=== PATIENT | female | born 1965 | race American Indian/Alaskan Native ===

== ENCOUNTER 2017-12-26 23:33 | Emergency (ER) | payer MEDICARE ==
[2017-12-27] MEDS ORDERED: NACL 0.9% 1000 ML 1,000 ML IV ONE (00:09)
--- NOTE | 2017-12-27 00:09 | Emergency Department Report ---
- General Stated complaint: WEAKNESS Time Seen by Provider: 12/27/17 00:01 Source: patient - History of Present Illness Initial comments: Patient is a 52-year-old female who is complaining of weakness. Patient states that for the last several days been out of her insulin needles and cannot give herself her NovoLog which is on sliding scale. Patient has been taking her metformin. Patient states that today she became very weak and near syncopal at times. Patient has polydipsia polyuria. Patient called 911 checked her sugar was over 300. Patient says she is very sluggish. Patient denies any nausea vomiting abdominal pain at this time. -: Gradual, days(s) (1) - Related Data Home Medications Medication Instructions Recorded Confirmed Last Taken Amitriptyline [Elavil] 25 mg PO QHS 12/27/17 12/27/17 Unknown Amlodipine Besylate [Norvasc] 10 mg PO QDAY 12/27/17 12/27/17 Unknown AtorvaSTATin [Lipitor] 40 mg PO QHS 12/27/17 12/27/17 Unknown Bupropion HCl [Bupropion HCl Sr] 150 mg PO QAM 12/27/17 12/27/17 Unknown HYDROcodone/APAP 7.5-325 [[place] 1 each PO BID 12/27/17 12/27/17 Unknown 7.5/325] Losartan [Cozaar] 25 mg PO QDAY 12/27/17 12/27/17 Unknown Metformin HCl 850 mg PO BID 12/27/17 12/27/17 Unknown Prazosin [Minipress] 2 mg PO QHS 12/27/17 12/27/17 Unknown Quetiapine Fumarate [QUEtiapine 300 mg PO QHS 12/27/17 12/27/17 Unknown Fumarate] Venlafaxine HCl [Venlafaxine HCl 75 mg PO QAM 12/27/17 12/27/17 Unknown ER] Previous Rx's Medication Instructions Recorded Last Taken Type Blood Sugar Diagnostic [Test 1 each MC TID #90 strip 12/27/17 Unknown Rx Strips] Ciprofloxacin HCl [Cipro] 500 mg PO BID #14 tablet 12/27/17 Unknown Rx Syringe-Needle,Insulin,0.5 ml 1 each MC PRN #90 disp.syrin 12/27/17 Unknown Rx [Insulin Syringe/Needle 0.5 ML] Allergies Allergy/AdvReac Type Severity Reaction Status Date / Time No Known Allergies Allergy Unverified 12/27/17 00:20 ED Review of Systems ROS: Stated complaint: WEAKNESS Other details as noted in HPI Comment: All other systems reviewed and negative ED Past Medical Hx - Medications Home Medications: Home Medications Medication Instructions Recorded Confirmed Last Taken Type Amitriptyline [Elavil] 25 mg PO QHS 12/27/17 12/27/17 Unknown History Amlodipine Besylate [Norvasc] 10 mg PO QDAY 12/27/17 12/27/17 Unknown History AtorvaSTATin [Lipitor] 40 mg PO QHS 12/27/17 12/27/17 Unknown History Blood Sugar Diagnostic [Test 1 each MC TID #90 strip 12/27/17 Unknown Rx Strips] Bupropion HCl [Bupropion HCl Sr] 150 mg PO QAM 12/27/17 12/27/17 Unknown History Ciprofloxacin HCl [Cipro] 500 mg PO BID #14 tablet 12/27/17 Unknown Rx HYDROcodone/APAP 7.5-325 [[place] 1 each PO BID 12/27/17 12/27/17 Unknown History 7.5/325] Losartan [Cozaar] 25 mg PO QDAY 12/27/17 12/27/17 Unknown History Metformin HCl 850 mg PO BID 12/27/17 12/27/17 Unknown History Prazosin [Minipress] 2 mg PO QHS 12/27/17 12/27/17 Unknown History Quetiapine Fumarate [QUEtiapine 300 mg PO QHS 12/27/17 12/27/17 Unknown History Fumarate] Syringe-Needle,Insulin,0.5 ml 1 each MC PRN #90 disp.syrin 12/27/17 Unknown Rx [Insulin Syringe/Needle 0.5 ML] Venlafaxine HCl [Venlafaxine HCl 75 mg PO QAM 12/27/17 12/27/17 Unknown History ER] ED Physical Exam - General General appearance: alert, in no apparent distress - Head Head exam: Present: atraumatic, normocephalic - Eye Eye exam: Present: normal appearance - ENT ENT exam: Present: mucous membranes dry - Neck Neck exam: Present: normal inspection - Respiratory Respiratory exam: Present: normal lung sounds bilaterally. Absent: respiratory distress, wheezes, rales - Cardiovascular Cardiovascular Exam: Present: regular rate, normal rhythm. Absent: systolic murmur, diastolic murmur, rubs, gallop - GI/Abdominal GI/Abdominal exam: Present: soft, normal bowel sounds. Absent: distended, tenderness, guarding, rebound - Extremities Exam Extremities exam: Present: normal inspection - Back Exam Back exam: Present: normal inspection - Neurological Exam Neurological exam: Present: alert, oriented X3 - Psychiatric Psychiatric exam: Present: normal affect, normal mood - Skin Skin exam: Present: warm, dry, intact, normal color. Absent: rash ED Course Vital Signs 12/26/17 12/27/17 12/27/17 23:52 00:00 00:10 Temperature 97.6 F 97.6 F Pulse Rate 95 H 99 H 95 H Respiratory 17 11 L 17 Rate Blood Pressure 181/61 Blood Pressure 181/61 [Left] O2 Sat by Pulse 98 98 Oximetry 12/27/17 12/27/17 12/27/17 00:13 00:15 00:30 Temperature Pulse Rate 98 H 93 H Respiratory 17 12 12 Rate Blood Pressure 148/56 142/54 Blood Pressure [Left] O2 Sat by Pulse 98 99 99 Oximetry ED Medical Decision Making - Lab Data Result diagrams: 12/27/17 00:18 12/27/17 00:18 Lab Results 12/27/17 12/27/17 12/27/17 Range/Units 00:13 00:18 00:18 WBC 3.9 L (4.5-11.0) K/mm3 RBC 4.54 (3.65-5.03) M/mm3 Hgb 12.4 (10.1-14.3) gm/dl Hct 38.2 (30.3-42.9) % MCV 84 (79-97) fl MCH 27 L (28-32) pg MCHC 32 (30-34) % RDW 14.2 (13.2-15.2) % Plt Count 149 (140-440) K/mm3 Lymph % (Auto) 27.1 (13.4-35.0) % [place] % (Auto) 7.9 H (0.0-7.3) % Eos % (Auto) 0.9 (0.0-4.3) % Baso % (Auto) 0.6 (0.0-1.8) % Lymph # 1.1 L (1.2-5.4) K/mm3 [place] # 0.3 (0.0-0.8) K/mm3 Eos # 0.0 (0.0-0.4) K/mm3 Baso # 0.0 (0.0-0.1) K/mm3 Seg Neutrophils % 63.5 (40.0-70.0) % Seg Neutrophils # 2.5 (1.8-7.7) K/mm3 Sodium 139 (137-145) mmol/L Potassium 3.8 (3.6-5.0) mmol/L Chloride 100.8 (98-107) mmol/L Carbon Dioxide 27 (22-30) mmol/L Anion Gap 15 mmol/L BUN 7 (7-17) mg/dL Creatinine 0.5 L (0.7-1.2) mg/dL Estimated GFR > 60 ml/min BUN/Creatinine Ratio 14 % Glucose 381 H (65-100) mg/dL Calcium 8.1 L (8.4-10.2) mg/dL Urine Color Yellow (Yellow) Urine Turbidity Clear (Clear) Urine pH 6.0 (5.0-7.0) Ur Specific [place] 1.035 H (1.003-1.030) Urine Protein 30 mg/dl (Negative) mg/dL Urine Glucose (UA) >=500 (Negative) mg/dL Urine Ketones Neg (Negative) mg/dL Urine Blood Sm (Negative) Urine Nitrite Pos (Negative) Urine Bilirubin Neg (Negative) Urine Urobilinogen < 2.0 (<2.0) mg/dL Ur Leukocyte Esterase Mod (Negative) Urine WBC (Auto) > 182.0 H (0.0-6.0) /HPF Urine RBC (Auto) 7.0 (0.0-6.0) /HPF U Epithel Cells (Auto) 1.0 (0-13.0) /HPF Urine Bacteria (Auto) 1+ (Negative) /HPF Urine Mucus Few /HPF - Medical Decision Making His is a 52-year-old black female whose glucoses been elevated secondary to running out of her insulin needles which will be provided to her today. As well as because of her urinary tract infection. Further questioning patient does state for the past several days she has had some discomfort with urination and urinary frequency. Patient will be discharged home with Cipro as well. The patient was hydrated she is not in DKA and can be treated at home. Critical care attestation.: If time is entered above; I have spent that time in minutes in the direct care of this critically ill patient, excluding procedure time. ED Disposition Clinical Impression: Hyperglycemia Acute cystitis Qualifiers: Hematuria presence: without hematuria Qualified Code(s): N30.00 - Acute cystitis without hematuria Disposition: TO HOME OR SELFCARE Is pt being admited?: No Does the pt Need Aspirin: No Condition: Fair Instructions: Urinary Tract Infection in Women (ED) Prescriptions: Blood Sugar Diagnostic [Test Strips] 1 each MC TID #90 strip Ciprofloxacin HCl [Cipro] 500 mg PO BID #14 tablet Syringe-Needle,Insulin,0.5 ml [Insulin Syringe/Needle 0.5 ML] 1 each MC PRN #90 disp.syrin Referrals: MARCELLA BONILLA MD [Primary Care Provider] - 3-5 Days
[2017-12-27 00:41] LABS: Basophils % (Auto) 0.6 % (0.0-1.8); Eosinophils % (Auto) 0.9 % (0.0-4.3); Hematocrit 38.2 % (30.3-42.9); Hemoglobin 12.4 gm/dl (10.1-14.3); Lymphocytes # (Auto) 1.1 K/mm3 (1.2-5.4); Lymphocytes % (Auto) 27.1 % (13.4-35.0); Mean Corpuscular HGB Conc 32 % (30-34); Mean Corpuscular Hemoglobin 27 pg (28-32); Mean Corpuscular Volume 84 fl (79-97); Monocytes # (Auto) 0.3 K/mm3 (0.0-0.8); Monocytes % (Auto) 7.9 % (0.0-7.3); Platelet Count 149 K/mm3 (140-440); Red Blood Count 4.54 M/mm3 (3.65-5.03); Red Cell Distribution Width 14.2 % (13.2-15.2)
[2017-12-27 00:41] LABS: Bacteria,Urine 1+ /HPF (Negative); Bilirubin,Urine NEG (Negative); Blood,Urine SM (Negative); Color,Urine Yellow (Yellow); Mucus,Urine FEW /HPF; Urobilinogen,Urine < 2.0 mg/dL (<2.0)
[2017-12-27 00:42] LABS: BUN/Creatinine Ratio 14; Blood Urea Nitrogen 7 mg/dL (7-17); Calcium 8.1 mg/dL (8.4-10.2); Hemolysis Index 9
[2017-12-27 00:42] LABS: WBC,Urine > 182.0 /HPF (0.0-6.0)
[2017-12-27 03:57] VITALS: BP 154/67
== END 2017-12-27 03:55 | disposition home or self-care (01) ==
LOC: ED 23:33
DX: E16.2 Hypoglycemia, unspecified (principal); N30.00 Acute cystitis without hematuria
CPT/HCPCS: 36415; 80048; 81001; 82962; 85025; 96361; 96374; 99284; J7030; J1815

== ENCOUNTER 2018-02-03 10:11 | Emergency (ER) | payer MEDICARE ==
[2018-02-03 12:13] VITALS: BP 154/81
--- NOTE | 2018-02-03 12:15 | Emergency Department Report ---
ED Recheck HPI - General Chief Complaint: Laceration/Recheck/Suture Stated Complaint: PACKING REMOVAL Time Seen by Provider: 02/03/18 12:06 Source: patient Mode of arrival: Ambulatory Limitations: No Limitations - History of Present Illness Initial Comments: This is a 52-year-old female nontoxic, well nourished in appearance, no acute signs of distress presents to the ED with c/o of wound recheck and packing removal from incision and drainage was performed on 01/31/2018. Patient stated she also has been prescribed Bactrim which she is currently taking. Patient denies any chest pain, shortness of breath, fever, chills, nausea, vomiting, headache or stiff neck. Patient denies any allergies. Past medical history includes diabetes and hypertension. MD Complaint: wound re-check -: days(s) (3) Initial Visit For: abscess Returns Today for: wound recheck Symptoms Since Prior Visit: no new symptoms, improved Context: planned re-check Associated Symptoms: none. denies: fever, chills, chest pain, shortness of breath, rash, malaise, nas[place]a, abdominal pain - Related Data Home Medications Medication Instructions Recorded Confirmed Last Taken Amitriptyline [Elavil] 25 mg PO QHS 12/27/17 12/27/17 Unknown Amlodipine Besylate [Norvasc] 10 mg PO QDAY 12/27/17 12/27/17 Unknown AtorvaSTATin [Lipitor] 40 mg PO QHS 12/27/17 12/27/17 Unknown Bupropion HCl [Bupropion HCl Sr] 150 mg PO QAM 12/27/17 12/27/17 Unknown HYDROcodone/APAP 7.5-325 [[place] 1 each PO BID 12/27/17 12/27/17 Unknown 7.5/325] Losartan [Cozaar] 25 mg PO QDAY 12/27/17 12/27/17 Unknown Metformin HCl 850 mg PO BID 12/27/17 12/27/17 Unknown Prazosin [Minipress] 2 mg PO QHS 12/27/17 12/27/17 Unknown Quetiapine Fumarate [QUEtiapine 300 mg PO QHS 12/27/17 12/27/17 Unknown Fumarate] Venlafaxine HCl [Venlafaxine HCl 75 mg PO QAM 12/27/17 12/27/17 Unknown ER] Previous Rx's Medication Instructions Recorded Last Taken Type Blood Sugar Diagnostic [Test 1 each MC TID #90 strip 12/27/17 Unknown Rx Strips] Ciprofloxacin HCl [Cipro] 500 mg PO BID #14 tablet 12/27/17 Unknown Rx Syringe-Needle,Insulin,0.5 ml 1 each MC PRN #90 disp.syrin 12/27/17 Unknown Rx [Insulin Syringe/Needle 0.5 ML] traMADol [Ultram] 50 mg PO Q6HR PRN #15 tablet 02/03/18 Unknown Rx Allergies Allergy/AdvReac Type Severity Reaction Status Date / Time No Known Allergies Allergy Unverified 12/27/17 00:20 ED Review of Systems ROS: Stated complaint: PACKING REMOVAL Other details as noted in HPI Constitutional: denies: chills, fever Eyes: denies: eye pain, eye discharge, vision change ENT: denies: ear pain, throat pain Respiratory: denies: cough, shortness of breath, wheezing Cardiovascular: denies: chest pain, palpitations Endocrine: no symptoms reported Gastrointestinal: denies: abdominal pain, nausea, diarrhea Genitourinary: denies: urgency, dysuria, discharge Musculoskeletal: denies: back pain, joint swelling, arthralgia Skin: denies: rash, lesions Neurological: denies: headache, weakness, paresthesias Psychiatric: denies: anxiety, depression Hematological/Lymphatic: denies: easy bleeding, easy bruising ED Past Medical Hx - Past Medical History Previous Medical History?: Yes Hx Hypertension: Yes Hx Diabetes: Yes - Surgical History Past Surgical History?: Yes Additional Surgical History: C/S*3 , partial hysterectomy - Social History Smoking Status: Current Every Day Smoker Substance Use Type: Alcohol - Medications Home Medications: Home Medications Medication Instructions Recorded Confirmed Last Taken Type Amitriptyline [Elavil] 25 mg PO QHS 12/27/17 12/27/17 Unknown History Amlodipine Besylate [Norvasc] 10 mg PO QDAY 12/27/17 12/27/17 Unknown History AtorvaSTATin [Lipitor] 40 mg PO QHS 12/27/17 12/27/17 Unknown History Blood Sugar Diagnostic [Test 1 each MC TID #90 strip 12/27/17 Unknown Rx Strips] Bupropion HCl [Bupropion HCl Sr] 150 mg PO QAM 12/27/17 12/27/17 Unknown History Ciprofloxacin HCl [Cipro] 500 mg PO BID #14 tablet 12/27/17 Unknown Rx HYDROcodone/APAP 7.5-325 [[place] 1 each PO BID 12/27/17 12/27/17 Unknown History 7.5/325] Losartan [Cozaar] 25 mg PO QDAY 12/27/17 12/27/17 Unknown History Metformin HCl 850 mg PO BID 12/27/17 12/27/17 Unknown History Prazosin [Minipress] 2 mg PO QHS 12/27/17 12/27/17 Unknown History Quetiapine Fumarate [QUEtiapine 300 mg PO QHS 12/27/17 12/27/17 Unknown History Fumarate] Syringe-Needle,Insulin,0.5 ml 1 each MC PRN #90 disp.syrin 12/27/17 Unknown Rx [Insulin Syringe/Needle 0.5 ML] Venlafaxine HCl [Venlafaxine HCl 75 mg PO QAM 12/27/17 12/27/17 Unknown History ER] traMADol [Ultram] 50 mg PO Q6HR PRN #15 tablet 02/03/18 Unknown Rx ED Physical Exam - General Limitations: No Limitations General appearance: alert, in no apparent distress - Head Head exam: Present: atraumatic, normocephalic - Eye Eye exam: Present: normal appearance Pupils: Present: normal accommodation - ENT ENT exam: Present: normal exam, mucous membranes moist - Neck Neck exam: Present: normal inspection, full ROM. Absent: tenderness, meningismus - Respiratory Respiratory exam: Present: normal lung sounds bilaterally. Absent: respiratory distress, wheezes, rales, rhonchi, stridor, chest wall tenderness, accessory muscle use, decreased breath sounds, prolonged expiratory - Cardiovascular Cardiovascular Exam: Present: regular rate, normal rhythm, normal heart sounds. Absent: irregular rhythm, systolic murmur, diastolic murmur, rubs, gallop - GI/Abdominal GI/Abdominal exam: Present: soft, normal bowel sounds - Extremities Exam Extremities exam: Present: normal inspection, full ROM, normal capillary refill - Back Exam Back exam: Present: normal inspection, full ROM - Neurological Exam Neurological exam: Present: alert, oriented X3, normal gait - Psychiatric Psychiatric exam: Present: normal affect, normal mood - Skin Skin exam: Present: warm, dry, intact, normal color. Absent: rash - Other Other exam information: 1 cm incision with 1/4 packing present to left thigh. No purulent drainage present. No induration or fluctuance noted. No surrounding cellulitis. ED Course Vital Signs 02/03/18 02/03/18 10:40 12:12 Temperature 98.3 F 98.7 F Pulse Rate 104 H 87 Respiratory 16 18 Rate Blood Pressure 176/81 Blood Pressure 154/81 [Left] O2 Sat by Pulse 99 100 Oximetry - Reevaluation(s) Reevaluation #1: 02/03/18 12:20 Patient is speaking in full sentences with no signs of distress noted. ED Recheck MDM - Medical Decision Making This is a 52-year-old female that presents with reassessment of abscess and packing removal. Patient is stable and was examined by me. One fourth I informed packing has been removed and area has been flushed with normal saline. A sterile dressing has been applied. Patient was educated on proper wound care. Patient was instructed to continue taking antibiotics as prescribed. Patient was referred to Follow-up with a primary care doctor in 3-5 days or if symptoms worsen and continue return to emergency room as soon as possible. At time of discharge, the patient does not seem toxic or ill in appearance. No acute signs of distress noted. Patient agrees to discharge treatment plan of care. No further questions noted by the patient. Critical care attestation.: If time is entered above; I have spent that time in minutes in the direct care of this critically ill patient, excluding procedure time. ED Disposition Clinical Impression: Encounter for abscess packing removal Disposition: [id number]-01 TO HOME OR SELFCARE Is pt being admited?: No Does the pt Need Aspirin: No Condition: Stable Instructions: Acute Wound Care (ED), Tramadol (By mouth) Additional Instructions: Follow-up with a primary care doctor in 3-5 days or if symptoms worsen and continue return to emergency room as soon as possible. Do not operate any machinery while took an Ultram due to drowsiness. Prescriptions: traMADol [Ultram] 50 mg PO Q6HR PRN #15 tablet PRN Reason: Pain Referrals: LATA HAMPTON MD [Primary Care Provider] - 3-5 Days PRIMARY CARE, [Referring] - 3-5 Days [facility] [Outside] - 3-5 Days [facility] [Outside] - 3-5 Days Forms: Work/School Release Form(ED)
== END 2018-02-03 12:39 | disposition home or self-care (01) ==
LOC: ED 10:11
DX: Z48.02 Encounter for removal of sutures (principal)

== ENCOUNTER 2018-02-13 17:20 | Emergency (ER) | payer MEDICARE ==
--- NOTE | 2018-02-13 23:02 | Emergency Department Report ---
- General Chief complaint: Skin/Abscess/Foreign Body Stated complaint: ABSCESS LEFT ARMPIT Time Seen by Provider: 02/13/18 22:39 Source: patient, family Mode of arrival: Ambulatory Limitations: No Limitations - History of Present Illness Initial comments: Patient here reports that she has an abscess under her left arm that's been there for 2 weeks. She said it started out as a bump but over the last 2 days it's gotten bigger. Patient says she was here in January 31 and she has abscesses drained on her left thigh and it's still open and draining a little but it's getting better she says she came on February 03 to have her remove. Patient says she had abscess when she came in but it was small to her left arm pit. She is diabetic and reports that blood sugar prior to coming to the emergency room was 152 she is on insulin and metformin she said her blood sugar is usually controlled. She doesn't primary care physician which she says she has an appointment with in 4 days which is Thursday02/17/2018. Says she sees primary care for diabetes, high blood pressure and high cholesterol. She has a history of 3 and partial hysterectomy. She said she hasn't had a tetanus shot in over 10 years. Denies given tetanus vaccine was she was here for incision and drainage on February 03. Review of medical records show the patient was here on 12/27 2017 for weakness where she ran out of for insulin needle and was seen by Ta and was treated in emergency room and sent home. She was also seen on the for packing removal. She was given Cipro on 12/27/2017 but I do not see any note for for 11/21/2017. Patient says she was here on 2017. complaint: abscess/boil Onset/Timin -: week(s) Tetanus Up to Date: no Location: LUE (left armpit) Severity scale (0 -10): 8 Quality: constant, other (Marvin) Consistency: constant Improves with: rest Worsens with: palpation, movement Context: recent antibiotic (Richard and an antibiotic Cipro on 12/27/2017.) Treatments Prior to Arrival: bandages - Related Data Home Medications Medication Instructions Recorded Confirmed Last Taken Amitriptyline [Elavil] 25 mg PO QHS 12/27/17 12/27/17 Unknown Amlodipine Besylate [Norvasc] 10 mg PO QDAY 12/27/17 12/27/17 Unknown AtorvaSTATin [Lipitor] 40 mg PO QHS 12/27/17 12/27/17 Unknown Bupropion HCl [Bupropion HCl Sr] 150 mg PO QAM 12/27/17 12/27/17 Unknown Losartan [Cozaar] 25 mg PO QDAY 12/27/17 12/27/17 Unknown Metformin HCl 850 mg PO BID 12/27/17 12/27/17 Unknown Prazosin [Minipress] 2 mg PO QHS 12/27/17 12/27/17 Unknown Quetiapine Fumarate [QUEtiapine 300 mg PO QHS 12/27/17 12/27/17 Unknown Fumarate] Venlafaxine HCl [Venlafaxine HCl 75 mg PO QAM 12/27/17 12/27/17 Unknown ER] Previous Rx's Medication Instructions Recorded Last Taken Type Blood Sugar Diagnostic [Test 1 each MC TID #90 strip 12/27/17 Unknown Rx Strips] Ciprofloxacin HCl [Cipro] 500 mg PO BID #14 tablet 12/27/17 Unknown Rx Syringe-Needle,Insulin,0.5 ml 1 each MC PRN #90 disp.syrin 12/27/17 Unknown Rx [Insulin Syringe/Needle 0.5 ML] traMADol [Ultram] 50 mg PO Q6HR PRN #15 tablet 02/03/18 Unknown Rx Clindamycin [Clindamycin CAP] 300 mg PO Q8H 10 Days #30 cap 02/14/18 Unknown Rx HYDROcodone/APAP 7.5-325 [[place] 1 each PO Q6H PRN #16 tablet 02/14/18 Unknown Rx 7.5-325 mg TAB] Allergies Allergy/AdvReac Type Severity Reaction Status Date / Time No Known Allergies Allergy Verified 02/13/18 17:23 Abscess Boil HPI - HPI Chief Complaint: Skin/Abscess/Foreign Body Stated Complaint: ABSCESS LEFT ARMPIT Time Seen by Provider: 02/13/18 22:39 Home Medications: Home Medications Medication Instructions Recorded Confirmed Last Taken Amitriptyline [Elavil] 25 mg PO QHS 12/27/17 12/27/17 Unknown Amlodipine Besylate [Norvasc] 10 mg PO QDAY 12/27/17 12/27/17 Unknown AtorvaSTATin [Lipitor] 40 mg PO QHS 12/27/17 12/27/17 Unknown Bupropion HCl [Bupropion HCl Sr] 150 mg PO QAM 12/27/17 12/27/17 Unknown Losartan [Cozaar] 25 mg PO QDAY 12/27/17 12/27/17 Unknown Metformin HCl 850 mg PO BID 12/27/17 12/27/17 Unknown Prazosin [Minipress] 2 mg PO QHS 12/27/17 12/27/17 Unknown Quetiapine Fumarate [QUEtiapine 300 mg PO QHS 12/27/17 12/27/17 Unknown Fumarate] Venlafaxine HCl [Venlafaxine HCl 75 mg PO QAM 12/27/17 12/27/17 Unknown ER] Previous Rx's Medication Instructions Recorded Last Taken Type Blood Sugar Diagnostic [Test 1 each MC TID #90 strip 12/27/17 Unknown Rx Strips] Ciprofloxacin HCl [Cipro] 500 mg PO BID #14 tablet 12/27/17 Unknown Rx Syringe-Needle,Insulin,0.5 ml 1 each MC PRN #90 disp.syrin 12/27/17 Unknown Rx [Insulin Syringe/Needle 0.5 ML] traMADol [Ultram] 50 mg PO Q6HR PRN #15 tablet 02/03/18 Unknown Rx Clindamycin [Clindamycin CAP] 300 mg PO Q8H 10 Days #30 cap 02/14/18 Unknown Rx HYDROcodone/APAP 7.5-325 [[place] 1 each PO Q6H PRN #16 tablet 02/14/18 Unknown Rx 7.5-325 mg TAB] Allergies/Adverse Reactions: Allergies Allergy/AdvReac Type Severity Reaction Status Date / Time No Known Allergies Allergy Verified 02/13/18 17:23 ED Review of Systems ROS: Stated complaint: ABSCESS LEFT ARMPIT Other details as noted in HPI Comment: All other systems reviewed and negative Constitutional: no symptoms reported Eyes: denies: vision change Respiratory: no symptoms reported Cardiovascular: denies: chest pain, palpitations, dyspnea on exertion, edema, syncope, paroxysmal nocturnal dyspnea Gastrointestinal: denies: abdominal pain, nausea, vomiting Genitourinary: denies: dysuria, hematuria Musculoskeletal: denies: back pain, joint swelling, arthralgia, myalgia Skin: other (abscess left axilla ) Neurological: denies: headache, numbness, paresthesias, abnormal gait, vertigo ED Past Medical Hx - Past Medical History Previous Medical History?: Yes Hx Hypertension: Yes Hx Diabetes: Yes - Surgical History Past Surgical History?: Yes Additional Surgical History: C/S*3 , partial hysterectomy - Family History Family history: diabetes, hypertension - Social History Smoking Status: Current Every Day Smoker Substance Use Type: None - Medications Home Medications: Home Medications Medication Instructions Recorded Confirmed Last Taken Type Amitriptyline [Elavil] 25 mg PO QHS 12/27/17 12/27/17 Unknown History Amlodipine Besylate [Norvasc] 10 mg PO QDAY 12/27/17 12/27/17 Unknown History AtorvaSTATin [Lipitor] 40 mg PO QHS 12/27/17 12/27/17 Unknown History Blood Sugar Diagnostic [Test 1 each MC TID #90 strip 12/27/17 Unknown Rx Strips] Bupropion HCl [Bupropion HCl Sr] 150 mg PO QAM 12/27/17 12/27/17 Unknown History Ciprofloxacin HCl [Cipro] 500 mg PO BID #14 tablet 12/27/17 Unknown Rx Losartan [Cozaar] 25 mg PO QDAY 12/27/17 12/27/17 Unknown History Metformin HCl 850 mg PO BID 12/27/17 12/27/17 Unknown History Prazosin [Minipress] 2 mg PO QHS 12/27/17 12/27/17 Unknown History Quetiapine Fumarate [QUEtiapine 300 mg PO QHS 12/27/17 12/27/17 Unknown History Fumarate] Syringe-Needle,Insulin,0.5 ml 1 each MC PRN #90 disp.syrin 12/27/17 Unknown Rx [Insulin Syringe/Needle 0.5 ML] Venlafaxine HCl [Venlafaxine HCl 75 mg PO QAM 12/27/17 12/27/17 Unknown History ER] traMADol [Ultram] 50 mg PO Q6HR PRN #15 tablet 02/03/18 Unknown Rx Clindamycin [Clindamycin CAP] 300 mg PO Q8H 10 Days #30 cap 02/14/18 Unknown Rx HYDROcodone/APAP 7.5-325 [[place] 1 each PO Q6H PRN #16 tablet 02/14/18 Unknown Rx 7.5-325 mg TAB] ED Physical Exam - General Limitations: No Limitations General appearance: alert, in no apparent distress - Head Head exam: Present: atraumatic, normocephalic, normal inspection - Eye Eye exam: Present: normal appearance, PERRL, EOMI Pupils: Present: normal accommodation - ENT ENT exam: Present: normal exam, normal orophraynx, mucous membranes moist - Neck Neck exam: Present: normal inspection, full ROM. Absent: tenderness, lymphadenopathy - Respiratory Respiratory exam: Present: normal lung sounds bilaterally. Absent: respiratory distress, chest wall tenderness - Cardiovascular Cardiovascular Exam: Present: normal rhythm, tachycardia, normal heart sounds - Extremities Exam Extremities exam: Present: normal inspection, full ROM, normal capillary refill , other (no clubbing, cyanosis or edema. Positive pulses all extremities and no neurovascular compromise.). Absent: tenderness, pedal edema, joint swelling , calf tenderness - Back Exam Back exam: Present: normal inspection, full ROM, other (ambulates without any difficulties). Absent: tenderness, CVA tenderness (R), CVA tenderness (L), muscle spasm, paraspinal tenderness, vertebral tenderness, rash noted - Neurological Exam Neurological exam: Present: alert, oriented X3, normal gait, reflexes normal. Absent: motor sensory deficit - Psychiatric Psychiatric exam: Present: normal affect, normal mood - Skin Skin exam: Present: warm, dry, normal color, erythema, other (abscess) - Expanded Skin Exam Expanded Type of lesion: Present: abscess Distribution of rash: LLE (left thigh that is healing. But still scant amount of serous drainage.) Description of rash: Present: size (dime-sized abscess to left thigh. 1 cm x 1 cm indurated area to left axilla with 2 cm of erythema surrounding indurated area), tenderness (left axilla and left thigh), erythematous (left axilla), swelling (after axilla), discharge (aft axilla and left thigh), fluctuant (left axilla), indurated (left axilla) ED Course Vital Signs 02/13/18 02/13/18 02/14/18 17:23 23:33 00:05 Temperature 99.4 F Pulse Rate 101 H 92 H Respiratory 18 18 Rate Blood Pressure 173/84 O2 Sat by Pulse 98 Oximetry - Reevaluation(s) Reevaluation #1: 02/14/18 00:08 Patient received clindamycin 600 mg IM for cellulitis and abscess right axilla, Boostrix 0.5 mL update tetanus and Percocet 5/325 2 tablets by mouth for pain. Please refer to procedure note for incision and drainage of left axilla abscess. Wound care to left thigh wound was drained and packing was removed by this hospital on 02/03/2018. Wound with still amount of scant drainage but patient said it's healing. She says she was on Bactrim but there is no record on her follow-up to see that she was here on 01/31/2018 to have one drained. Area cleansed with normal saline, Neosporin ointment placed followed by sterile dry dressing. - I & D Left Type of Procedure: Complex Site: left axilla Blade Size: 11 I & D Procedure: betadine prep, sterile drapes applied, sterile dressing applied , gauze wick placed Progress: Procedure: Patient with abscess to left axilla 1 x 1 cm indurated, fluctuant area with 2 x 2 centimeter of cellulitic area surrounded. Left axilla wound cleansed with iodine followed by normal saline. 3 mL of 0.5% Marcaine instilled in the area. #11 blade scalpel used to make small incision and manipulated with forcep. Large amount of serous drainage. Wound culture collected and sent. Wound packed with iodoform packing in and nonadhesive dressing placed followed by dry sterile dressing. Patient is an appointment with her primary care on 02/17/2018 site told her to follow-up for primary care to evaluate wound and possible removal of packing in and if they do not want to do that she can return to the emergency room. ED Medical Decision Making - Medical Decision Making ED course: Patient here with abscess to her left axilla area that was drained. Refer to procedure note for detail. She also has open wound to left thigh which she said was drained on 01/31/2018 although there are no notes in her chart to reflect this. She says she was placed on Bactrim which she completed. She did come to this emergency room to have packing removed on 02/03/2018. She still has some scant drainage to wound left thigh. Patient to see her primary care on 02/17/2018 for management of chronic medical problems and she said primary care did see her wound after packing was removed. I discussed the patient that she might have her primary care refer her to wound care since she is diabetic for management of wound. Patient was given clindamycin and 1 g IM, Boostrix 0.5 mL IM, Percocet 5/325 2 tablets by mouth and wound to left thigh cleansed with normal saline, followed by Neosporin ointment and dry sterile dressing placed inside. Patient discharged home with prescription for clindamycin and [place]. He voiced understanding of discharge instruction and treatment plan and wound culture collected and sent from left axilla. Critical care attestation.: If time is entered above; I have spent that time in minutes in the direct care of this critically ill patient, excluding procedure time. ED Disposition Clinical Impression: Cellulitis of axilla, left, Abscess, Encounter for drainage of abscess, Elevated blood pressure reading with diagnosis of hypertension Disposition: - TO HOME OR SELFCARE Is pt being admited?: No Does the pt Need Aspirin: No Condition: Stable Instructions: Abscess Incision and Drainage (ED), Cellulitis (ED), Acute Wound Care (ED), Wound Healing and Your Diet (ED), Wound Infection (ED), Hypertension (ED) Additional Instructions: Take antibiotic as prescribed Follow-up with your primary care physician . PCP appointment for 02/17/2018 and have him evaluate wound to left thigh and left axilla and he can remove packing in if wound is getting better If your primary care does not remove packing, please return to the emergency room on 02/17/2018 to have packing removed and evaluate 1. Keep affected area clean and dry. Followed discharge instruction on acute wound care . Please keep a record a few blood sugar and blood pressure, take to your primary care physician office with [facility] for evaluation Please do not drive or operate heavy machinery while taking [place] as this medication can cause drowsiness Prescriptions: Clindamycin [Clindamycin CAP] 300 mg PO Q8H 10 Days #30 cap HYDROcodone/APAP 7.5-325 [[place] 7.5-325 mg TAB] 1 each PO Q6H PRN #16 tablet PRN Reason: pain Referrals: LATA HAMPTON MD [Primary Care Provider] - 02/17/18 (Keep your scheduled appointment with your primary care physician on this day. Your primary care physician can evaluate your wound to left axilla and decide if packing kink mild otherwise if not you can return to the emergency room.) [facility] [Outside] - 2-3 Days Forms: Accompanied Note
[2018-02-13] MEDS ORDERED: CLEOCIN IM ONE (23:03)
[2018-02-13] MEDS ORDERED: PERCOCET 5/325 PO ONE (23:03)
[2018-02-13] MEDS ORDERED: TRIPLE ANTIBIOTIC TP ONE (23:03)
[2018-02-13] MEDS ORDERED: BOOSTRIX IM ONE (23:03)
[2018-02-13] MEDS ORDERED: MARCAINE 0.5% INFILTRATI ONE (23:32)
[2018-02-13] MEDS ORDERED: MARCAINE 0.25% INFILTRATI ONE (23:32)
[2018-02-14 00:59] VITALS: BP 168/82
== END 2018-02-14 00:28 | disposition home or self-care (01) ==
LOC: ED 17:20
DX: L02.412 Cutaneous abscess of left axilla (principal); L03.112 Cellulitis of left axilla; I10 Essential (primary) hypertension; E11.9 Type 2 diabetes mellitus without complications; F17.200 Nicotine dependence, unspecified, uncomplicated
CPT/HCPCS: 87116; 90471; 90715; 96372; A6250

== ENCOUNTER 2018-04-06 06:42 | Emergency (ER) | payer MEDICAID, MEDICARE ==
[2018-04-06 08:33] LABS: Basophils % (Auto) 0.7 % (0.0-1.8); Eosinophils # (Auto) 0.1 K/mm3 (0.0-0.4); Eosinophils % (Auto) 1.3 % (0.0-4.3); Hematocrit 43.6 % (30.3-42.9); Lymphocytes # (Auto) 1.2 K/mm3 (1.2-5.4); Lymphocytes % (Auto) 27.6 % (13.4-35.0); Mean Corpuscular HGB Conc 32 % (30-34); Mean Corpuscular Hemoglobin 27 pg (28-32); Mean Corpuscular Volume 84 fl (79-97); Monocytes # (Auto) 0.3 K/mm3 (0.0-0.8); Monocytes % (Auto) 7.6 % (0.0-7.3); Platelet Count 186 K/mm3 (140-440); Red Blood Count 5.19 M/mm3 (3.65-5.03); Red Cell Distribution Width 15.4 % (13.2-15.2)
[2018-04-06 08:43] LABS: Alanine Aminotransferase 24 units/L (7-56); BUN/Creatinine Ratio 28; Blood Urea Nitrogen 17 mg/dL (7-17); Calcium 8.9 mg/dL (8.4-10.2); Hemolysis Index 12; Lipase 20 units/L (13-60)
[2018-04-06 08:49] LABS: Bacteria,Urine 4+ /HPF (Negative); Bilirubin,Urine NEG (Negative); Blood,Urine NEG (Negative); Color,Urine Yellow (Yellow); Mucus,Urine 3+ /HPF; Urobilinogen,Urine < 2.0 mg/dL (<2.0)
[2018-04-06 08:53] LABS: WBC,Urine > 182.0 /HPF (0.0-6.0)
[2018-04-06] MEDS ORDERED: HumuLIN R IV ONE (10:27)
[2018-04-06] MEDS ORDERED: ROCEPHIN/NS 1 GM/50 ML 1 GM/50 ML BAG IV ONE (10:27)
[2018-04-06] MEDS ORDERED: TORADOL IV ONE (10:30)
--- NOTE | 2018-04-06 10:30 | Emergency Department Report ---
Chief Complaint: Back Pain/Injury Stated Complaint: ABDOMINAL PAIN Time Seen by Provider: 04/06/18 10:22 - HPI History of Present Illness: 52-year-old female presents to the emergency department with complaint of bilateral back pain with some radiation down her right buttock and leg. The patient follows with a pain management physician for chronic pains and recently had an injection of her knee and her back but she says that she did not get any improvement and thinks it might have worsened. She has a history of hypertension, diabetes. She is on both pills and insulin for her diabetes and has not taken her medications yet today. No recent travel or sick contacts at home. She denies any fever, nausea, vomiting. - ROS Review of Systems: Positive for back pain, leg pain/neuropathy Negative for fever, nausea, vomiting, chest pain, shortness of breath - Exam Vital Signs: Vital Signs 04/06/18 04/06/18 07:54 09:59 Temperature 97.3 F L 98.8 F Pulse Rate 89 82 Respiratory 20 Rate Blood Pressure 179/74 Blood Pressure 178/78 [Left] O2 Sat by Pulse 99 Oximetry Physical Exam: No midline tenderness to palpation, step-off or deformity. She has some reproducible bilateral paraspinal and/or CVA tenderness. Heart and lung sounds are normal on auscultation. She does not appear in any acute distress. MSE screening note: Focused history and physical exam performed. Due to findings the following was ordered: The patient's labs show a blood sugar of 390 and a urinary tract infection. An IV will be placed and she will be given IV insulin and some Rocephin. She will have a renal ultrasound done to make sure that there is no signs of hydronephrosis or pyelonephritis as the cause of her discomfort. ED Medical Decision Making - Lab Data Result diagrams: 04/06/18 08:03 04/06/18 08:03 ED Disposition for MSE Condition: Stable Referrals: PRIMARY CARE, [Primary Care Provider] - 3-5 Days
[2018-04-06] MEDS ORDERED: cefTRIAXone 1 GM in NACL 0.9% 20 ML IV ONE (10:45)
--- NOTE | 2018-04-06 11:41 | Ultrasound Report ---
ULTRASOUND RENAL BILATERAL HISTORY: Back pain, UTI. TECHNIQUE: transabdominal ultrasound with color Doppler interrogation. COMPARISON: none. FINDINGS: The kidneys are normal size, contour and position. There is increased renal parenchymal echotexture bilaterally. Corticomedullary differentiation is preserved. No evidence for cystic disease, mass, nephrolithiasis, hydronephrosis or perinephric fluid. The views of the bladder and the region of the ureters appear normal. IMPRESSION: Renal parenchymal disease.
[2018-04-06] MEDS ORDERED: NORVASC PO ONE (12:15)
[2018-04-06] MEDS ORDERED: MORPHINE IV ONE (12:16)
[2018-04-06] MEDS ORDERED: CATAPRES PO ONE (12:16)
[2018-04-06] MEDS ORDERED: ZOFRAN ONE (12:18)
[2018-04-06] MEDS ORDERED: ZOFRAN IV ONE (12:19)
--- NOTE | 2018-04-06 13:30 | Emergency Department Report ---
ED Back Pain/Injury HPI - General Chief Complaint: Back Pain/Injury Stated Complaint: ABDOMINAL PAIN Time Seen by Provider: 04/06/18 10:22 Source: patient Limitations: No Limitations - History of Present Illness Initial Comments: 52-year-old female past medical history hyperlipidemia and diabetes hypertension , chronic back pain presents with complaint of dysuria increased urinary frequency and acute on chronic back pain. Patient is awake alert and oriented 3 fully lucid. States her pain is significantly better than when she entered the ED and was initially evaluated. MD Complaint: back pain Onset/Timin -: days(s) Place: home Severity: mild Quality: dull Consistency: constant Improves With: none - Related Data Home Medications Medication Instructions Recorded Confirmed Last Taken Amitriptyline [Elavil] 25 mg PO QHS 12/27/17 12/27/17 Unknown Amlodipine Besylate [Norvasc] 10 mg PO QDAY 12/27/17 12/27/17 Unknown AtorvaSTATin [Lipitor] 40 mg PO QHS 12/27/17 12/27/17 Unknown Bupropion HCl [Bupropion HCl Sr] 150 mg PO QAM 12/27/17 12/27/17 Unknown Losartan [Cozaar] 25 mg PO QDAY 12/27/17 12/27/17 Unknown Metformin HCl 850 mg PO BID 12/27/17 12/27/17 Unknown Prazosin [Minipress] 2 mg PO QHS 12/27/17 12/27/17 Unknown Quetiapine Fumarate [QUEtiapine 300 mg PO QHS 12/27/17 12/27/17 Unknown Fumarate] Venlafaxine HCl [Venlafaxine HCl 75 mg PO QAM 12/27/17 12/27/17 Unknown ER] Previous Rx's Medication Instructions Recorded Last Taken Type Blood Sugar Diagnostic [Test 1 each MC TID #90 strip 12/27/17 Unknown Rx Strips] Ciprofloxacin HCl [Cipro] 500 mg PO BID #14 tablet 12/27/17 Unknown Rx Syringe-Needle,Insulin,0.5 ml 1 each MC PRN #90 disp.syrin 12/27/17 Unknown Rx [Insulin Syringe/Needle 0.5 ML] traMADol [Ultram] 50 mg PO Q6HR PRN #15 tablet 02/03/18 Unknown Rx Clindamycin [Clindamycin CAP] 300 mg PO Q8H 10 Days #30 cap 02/14/18 Unknown Rx HYDROcodone/APAP 7.5-325 [Gregory 1 each PO Q6H PRN #16 tablet 02/14/18 Unknown Rx 7.5-325 mg TAB] Acetaminophen [Tylenol] 500 mg PO Q6HR PRN #20 tablet 04/06/18 Unknown Rx Acetaminophen/Codeine [Tylenol 1 tab PO Q6H PRN #6 tab 04/06/18 Unknown Rx /Codeine # 3 tab] Sulfamethoxazole/Trimethoprim 1 each PO BID #28 tablet 04/06/18 Unknown Rx [Bactrim DS TAB] Allergies Allergy/AdvReac Type Severity Reaction Status Date / Time No Known Allergies Allergy Verified 02/13/18 17:23 ED Review of Systems ROS: Stated complaint: ABDOMINAL PAIN Other details as noted in HPI ED Past Medical Hx - Past Medical History Previous Medical History?: Yes Hx Hypertension: Yes Hx Diabetes: Yes Additional medical history: Back pain with VEDA injections - Surgical History Past Surgical History?: Yes Additional Surgical History: x 3 , partial hysterectomy - Social History Smoking Status: Current Every Day Smoker Substance Use Type: Prescribed - Medications Home Medications: Home Medications Medication Instructions Recorded Confirmed Last Taken Type Amitriptyline [Elavil] 25 mg PO QHS 12/27/17 12/27/17 Unknown History Amlodipine Besylate [Norvasc] 10 mg PO QDAY 12/27/17 12/27/17 Unknown History AtorvaSTATin [Lipitor] 40 mg PO QHS 12/27/17 12/27/17 Unknown History Blood Sugar Diagnostic [Test 1 each MC TID #90 strip 12/27/17 Unknown Rx Strips] Bupropion HCl [Bupropion HCl Sr] 150 mg PO QAM 12/27/17 12/27/17 Unknown History Ciprofloxacin HCl [Cipro] 500 mg PO BID #14 tablet 12/27/17 Unknown Rx Losartan [Cozaar] 25 mg PO QDAY 12/27/17 12/27/17 Unknown History Metformin HCl 850 mg PO BID 12/27/17 12/27/17 Unknown History Prazosin [Minipress] 2 mg PO QHS 12/27/17 12/27/17 Unknown History Quetiapine Fumarate [QUEtiapine 300 mg PO QHS 12/27/17 12/27/17 Unknown History Fumarate] Syringe-Needle,Insulin,0.5 ml 1 each MC PRN #90 disp.syrin 12/27/17 Unknown Rx [Insulin Syringe/Needle 0.5 ML] Venlafaxine HCl [Venlafaxine HCl 75 mg PO QAM 12/27/17 12/27/17 Unknown History ER] traMADol [Ultram] 50 mg PO Q6HR PRN #15 tablet 02/03/18 Unknown Rx Clindamycin [Clindamycin CAP] 300 mg PO Q8H 10 Days #30 cap 02/14/18 Unknown Rx HYDROcodone/APAP 7.5-325 [Gregory 1 each PO Q6H PRN #16 tablet 02/14/18 Unknown Rx 7.5-325 mg TAB] Acetaminophen [Tylenol] 500 mg PO Q6HR PRN #20 tablet 04/06/18 Unknown Rx Acetaminophen/Codeine [Tylenol 1 tab PO Q6H PRN #6 tab 04/06/18 Unknown Rx /Codeine # 3 tab] Sulfamethoxazole/Trimethoprim 1 each PO BID #28 tablet 04/06/18 Unknown Rx [Bactrim DS TAB] ED Physical Exam - General Limitations: No Limitations General appearance: alert, in no apparent distress - Head Head exam: Present: atraumatic, normocephalic - Eye Eye exam: Present: normal appearance - ENT ENT exam: Present: mucous membranes moist - Neck Neck exam: Present: normal inspection - Respiratory Respiratory exam: Present: normal lung sounds bilaterally. Absent: respiratory distress - Cardiovascular Cardiovascular Exam: Present: regular rate, normal rhythm. Absent: systolic murmur, diastolic murmur, rubs, gallop - GI/Abdominal GI/Abdominal exam: Present: soft, normal bowel sounds - Extremities Exam Extremities exam: Present: normal inspection - Back Exam Back exam: Present: normal inspection, full ROM, CVA tenderness (R) - Neurological Exam Neurological exam: Present: alert, oriented X3, CN II-XII intact - Psychiatric Psychiatric exam: Present: normal affect, normal mood - Skin Skin exam: Present: warm, dry, intact, normal color. Absent: rash ED Course Vital Signs 04/06/18 04/06/18 04/06/18 07:54 09:59 12:18 Temperature 97.3 F L 98.8 F Pulse Rate 89 82 62 Respiratory 20 20 Rate Blood Pressure 179/74 Blood Pressure 178/78 187/69 [Left] O2 Sat by Pulse 99 98 Oximetry 04/06/18 13:20 Temperature Pulse Rate Respiratory 18 Rate Blood Pressure Blood Pressure [Left] O2 Sat by Pulse 98 Oximetry ED Medical Decision Making - Lab Data Result diagrams: 04/06/18 08:03 04/06/18 08:03 - Medical Decision Making A/P: Urinary tract infection, hyperglycemia, hypertension 1-glucose level has decreased with dosing of insulin. She states she has been noncompliant but does have her medicines including insulin and metformin at home. States she simply has not taken in the last few days because she felt lazy 2-blood pressure improved with home medications 3-patient has decreased pain upon reassessment 4- as patient does have UTI with associated back pain will treat empirically with Bactrim 14 day course. Ultrasound shows some renal parenchymal disease, no hydronephrosis 5-I advised patient to return to the ED for any fevers chills nausea vomiting severe worsening flank pain or inability to tolerate any fluid or food by mouth. pt doews not currently meet SIRS criteria Critical care attestation.: If time is entered above; I have spent that time in minutes in the direct care of this critically ill patient, excluding procedure time. ED Disposition Clinical Impression: Noncompliance with diabetes treatment Urinary tract infection Qualifiers: Urinary tract infection type: acute cystitis Hematuria presence: without hematuria Qualified Code(s): N30.00 - Acute cystitis without hematuria Back pain Qualifiers: Back pain location: low back pain Chronicity: chronic Back pain laterality: unspecified Sciatica presence: unspecified whether sciatica present Qualified Code(s): M54.5 - Low back pain; G89.29 - Other chronic pain Hyperglycemia due to type 2 diabetes mellitus Qualifiers: Diabetes mellitus prison insulin use: with prison use Qualified Code(s): E11.65 - Type 2 diabetes mellitus with hyperglycemia; 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 Follow-up with your primary care doctor within 3-5 days Prescriptions: Acetaminophen [Tylenol] 500 mg PO Q6HR PRN #20 tablet PRN Reason: Fever Acetaminophen/Codeine [Tylenol /Codeine # 3 tab] 1 tab PO Q6H PRN #6 tab PRN Reason: Pain Sulfamethoxazole/Trimethoprim [Bactrim DS TAB] 1 each PO BID #28 tablet Referrals: [facility] [Provider Group] - 3-5 Days Forms: Work/School Release Form(ED) Time of Disposition: 13:46
[2018-04-06 14:03] VITALS: BP 169/85
== END 2018-04-06 14:16 | disposition home or self-care (01) ==
LOC: ED 06:42
DX: N30.00 Acute cystitis without hematuria (principal); E11.65 Type 2 diabetes mellitus with hyperglycemia; I10 Essential (primary) hypertension; Z91.14 Patient's other noncompliance with medication regimen; N28.89 Other specified disorders of kidney and ureter; M54.5 Low back pain; G89.29 Other chronic pain; F17.200 Nicotine dependence, unspecified, uncomplicated; Z79.4 Long term (current) use of insulin; Z90.711 Acquired absence of uterus with remaining cervical stump
CPT/HCPCS: 36415; 76770; 80053; 81001; 82962; 83690; 85025; 96374; 96375; 99284; J0696; J1885; J2270; J2405; J1815